=== PATIENT | female | born 2005 | race Caucasian/White ===

== ENCOUNTER 2023-10-28 13:03 | Emergency (ER) | payer OTHER, SELFPAY ==
[2023-10-28 13:13] VITALS: BP 126/87
--- NOTE | 2023-10-28 13:55 | ED.GENMED ---
History of Present Illness
<Marcella Bennett PA-C - Last Filed: 10/28/23 15:14>
General
Chief Complaint: Crisis Evaluation
Source: patient
Exam Limitations: none
Time Seen by Provider: 10/28/23 13:52
Nursing documentation reviewed up to this point in time: agreed with
Travel History
Have you had any contact with someone who has COVID-19?: No
Do you have any symptoms of coronavirus? Fever > 100 degrees, chills, cough, shortness of breath, sore throat, loss of taste or smell, muscle aches, or headache?: No
History of Present Illness
History of Present Illness:
This is a 18 y/o female with a PMH of anxiety, depression, PTSD, bipolar disorder presenting to the emergency department today with concerns for medical clearance. Patient is seeking inpatient psychiatric treatment for her bipolar disorder and got
excepted to the facility in [place]. Patient states that she is going there today. Patient denies any chest pain, shortness of breath, abdominal pain, headache, back pain urinary burning, fevers or chills chronic medical conditions. Patient
states that she does not take any other medications other than lamotrigine. Patient previously used meth, has used cocaine, marijuana, alcohol recently. Patient states that her right illicit drug use has been interacting with her lamotrigine and
so her treatment has not been optimized. Patient states that her facility is requesting a urine drug screen
Review of Systems
<Marcella Bennett PA-C - Last Filed: 10/28/23 15:14>
Review of Systems
All Other Systems: ROS reviewed and negative except as documented in HPI and ROS
Phy Exam
<Marcella Bennett PA-C - Last Filed: 10/28/23 15:14>
Physical Exam
Physical Exam:
General: Patient is well appearing and in no acute distress; non-toxic
Skin: Warm and dry, no rashes or lesions
Head: Normocephalic, atraumatic
Eyes: Sclera non-icteric. EOMs intact. PERRLA.
Cardiac: Regular rate and rhythm, no murmur
Peripheral Vascular: No lower extremity swelling or edema
Pulm: Normal respiratory effort, no wheezes, rales, rhonchi
Abdomen: No abdominal tenderness to palpation, no palpable masses
Neuro: CN II-XII intact, no focal neurologic deficits.
Psychiatric: Appropriate mood and affect.
Course
<Marcella Bennett PA-C - Last Filed: 10/28/23 15:14>
Orders/Labs/Results
Orders:
Orders
10/28/23 14:03
Test Result ONCE
10/28/23 14:06
Fentanyl, Urine Urgent
HCG, Urine Qualitative Screen Urgent
Date Specimen was Collected: 10/28/23
Time Specimen was Collected: 14:03
Urine Drug Abuse Screen Urgent
Date Specimen was Collected: 10/28/23
Time Specimen was Collected: 14:03
Abnormal Lab Results
10/28/23
14:06
Urine Cocaine Screen Positive H
(Negative)
U Marijuana (THC) Screen Positive H
(Negative)
Vital Signs
Initial and Last Documented VS:
Initial Vital Signs
Temp Pulse Resp BP Pulse Ox
98.2 F 83 20 126/87 99
10/28/23 13:13 10/28/23 13:13 10/28/23 13:13 10/28/23 13:13 10/28/23 13:13
Last Documented Vital Signs
Temp Pulse Resp BP Pulse Ox
98.2 F 83 20 126/87 99
10/28/23 13:13 10/28/23 13:13 10/28/23 13:13 10/28/23 13:13 10/28/23 13:13
<Koby Hinojosa MD - Last Filed: 10/28/23 14:37>
Orders/Labs/Results
Orders:
Orders
10/28/23 14:03
Test Result ONCE
10/28/23 14:06
Fentanyl, Urine Urgent
HCG, Urine Qualitative Screen Urgent
Date Specimen was Collected: 10/28/23
Time Specimen was Collected: 14:03
Urine Drug Abuse Screen Urgent
Date Specimen was Collected: 10/28/23
Time Specimen was Collected: 14:03
Abnormal Lab Results
10/28/23
14:06
Urine Cocaine Screen Positive H
(Negative)
U Marijuana (THC) Screen Positive H
(Negative)
Vital Signs
Initial and Last Documented VS:
Initial Vital Signs
Temp Pulse Resp BP Pulse Ox
98.2 F 83 20 126/87 99
10/28/23 13:13 10/28/23 13:13 10/28/23 13:13 10/28/23 13:13 10/28/23 13:13
Last Documented Vital Signs
Temp Pulse Resp BP Pulse Ox
98.2 F 83 20 126/87 99
10/28/23 13:13 10/28/23 13:13 10/28/23 13:13 10/28/23 13:13 10/28/23 13:13
Slimlt;Marcella Bennett PA-C - Last Filed: 10/28/23 15:14>
MDM/Problems Addressed
Differential Diagnosis Includes:
Patient presents today for medical clearance for inpatient psychiatric treatment. She has no chronic medical issues
MDM/Problems Addressed:
Medical Clearance:
18-year-old female with past medical history of depression, anxiety, bipolar disorder presenting emergency department today for medical clearance for inpatient psychiatric treatment. Patient has no medical concerns at this time, is completely
asymptomatic currently. Has no chronic medical conditions. Her facility is requesting a urine drug screen. Urine test negative. Her urine drug screen demonstrates positive for cocaine and THC however patient already admits to past use of
this. Patient is medically stable for psychiatric treatment.
Chronic conditions affecting care:
Anxiety, PTSD, bipolar disorder, depression
Chronic conditions affecting care: Psychiatric illness
Acute Exacerbation and/or Progression of Chronic Illness:
Anxiety, PTSD, bipolar disorder, depression
<Marcella Bennett PA-C - Last Filed: 10/28/23 15:14>
*Pulse Oximetry
Patient hypoxic: no
*Critical Care Note
Total Time (30-74mins, 75-104mins- exclusive of procedures): Not Applicable
Data Reviewed
Review of Other/Old Records Reveals: Records (reviewed ER physician documentation from 07/14/18) and Discharge Summary (no discharge summaries to review)
Source: patient and records
ED Attending Note
<Marcella Bennett PA-C - Last Filed: 10/28/23 15:14>
-
Portions of this chart may have been created with voice recognition software.� Occasional wrong word or��sound alike� substitutions may have occurred due to the inherent limitations of voice recognition software.
<Koby Hinojosa MD - Last Filed: 10/28/23 14:37>
ED Attending Note
Patient seen and examined by attending physician: Yes
I performed the substantive portion of visit, reviewed & personally made and approve the management plan that is documented in note by myself or ZUHAIR.: Yes
ED Attending Note:
Medical clearance for crisis. No medical complaints. Going in as a voluntary. Denies chest pain shortness of breath headache visual issues or other complaints
On exam patient is cooperative nontoxic in no distress. Normocephalic atraumatic. This sharp. Speech is normal. Lungs are clear and equal. Heart regular rate and rhythm. Warm and dry perfusing well.
Patient is medically cleared
Discharge Plan
Departure
Patient Disposition: Home (Routine Discharge)
Date of Disposition: 10/28/23
Time of Disposition: 15:11
Patient with high blood pressure during this ER visit?: Yes
Condition: Good
Discharge Problem:
Medical clearance for psychiatric admission
Instructions: Bipolar disorder, BLOOD PRESSURE, Drug and Alcohol Abuse Information
Prescriptions:
No Action
Control
1 tab PO DAILY
Referrals:
UNKNOWN,NO INTERVIEW [Family Provider] -
Activity Restrictions/Additional Instructions:
Patient is medically stable for inpatient psychiatric treatment.
Please return to the emergency department if you experience shortness of breath, chest pain, dizziness, withdrawal symptoms, seizures, or any other concerns.
Interventions
Interventions:
*Risk Screen - Suicide Last Done: 10/28/23 13:13
*General Assessment Last Done: 10/28/23 13:13
*Neglect/Abuse Screening Last Done: 10/28/23 13:13
Discharge Date and Time
Print Language: JORDANIAN
[2023-10-28 14:35] LABS: HCG, Urine Qualitative Screen Negative
[2023-10-28 14:48] LABS: Marijuana Positive (Negative)
[2023-10-28 14:49] LABS: Amphetamines Negative (Negative); Barbiturates Negative (Negative); Benzodiazepines Negative (Negative); Buprenorphine Negative (Negative); Cocaine Positive (Negative); Methadone Negative (Negative); Methamphetamines Negative (Negative); Opiates Negative (Negative); Phencyclidine Negative (Negative); Tricyclic Antidepressants Negative (Negative)
[2023-10-28 15:11] LABS: Fentanyl, Urine Negative (Negative)
== END 2023-10-28 15:18 | disposition home or self-care (01) ==
LOC: EMR 13:03
PROVIDERS: Physician Assistant; EMERGENCY PHYSICIAN Emergency Medicine
DX: Z13.30 Encounter for screening examination for mental health and behavioral disorders, unspecified (principal); F31.9 Bipolar disorder, unspecified; F41.9 Anxiety disorder, unspecified; F43.10 Post-traumatic stress disorder, unspecified
CPT/HCPCS: 99283; 80306; 80307; 81025

== ENCOUNTER 2024-04-01 00:14 | Emergency (ER) | payer OTHER, SELFPAY ==
[2024-04-01 00:16] VITALS: BP 96/69; BMI 19.8
[2024-04-01 00:46] LABS: % Basophils 0.5 % (0-2); % Eosinophils 1.6 % (0-6); % Immature Granulocytes 0.3 % (0-0.5); % Lymphocytes 39.9 % (20.5-51.1); % Monocytes 5.2 % (1.7-9.3); % Neutrophils 52.5 % (42.2-75.2); Absolute Basophils 0.1 10^3/uL (0-0.2); Absolute Eosinophils 0.2 10^3/uL (0-0.7); Absolute Lymphocytes 4.5 10^3/uL (1.2-3.4); Absolute Monocytes 0.6 10^3/uL (0.1-0.6); Absolute Neutrophils 5.9 10^3/uL (1.4-6.5); Hematocrit 36.7 % (37.0-47.0); Hemoglobin 11.7 g/dL (12.0-16.0); Mean Corp Hgb Conc. 31.9 g/dL (33.0-37.0); Mean Corpuscular Hgb 28.7 pg (27.0-31.0); Mean Corpuscular Volume 90.2 fL (81.0-99.0); Mean Platelet Volume 11.6 fL (7.4-10.4); Nucleated Red Blood Cells % 0 %; Platelet Count 192 10^3/uL (130-400); Red Blood Cell Count 4.07 10^6/uL (4.20-5.40); White Blood Cell Count 11.2 10^3/uL (4.8-10.8)
[2024-04-01 00:58] LABS: HCG, Serum Qualitative Screen Negative
[2024-04-01 01:09] LABS: ALT (SGPT) 25 U/L (0-35); AST (SGOT) 23 U/L (14-36); Albumin 4.3 g/dl (3.5-5.0); Alkaline Phosphatase 57 U/L (38-126); Blood Urea Nitrogen 7 mg/dl (7-17); Calcium 9.2 mg/dl (8.4-10.2); Carbon Dioxide 23 mmol/L (22-30); Chloride 102 mmol/L (98-107); Estimated Creatinine Clearance 98 ml/min; Glucose 89 mg/dl (70-99); Potassium 4.2 mmol/L (3.5-5.1); Salicylate < 1.0 mg/dl (2.0-20.0); Sodium 139 mmol/L (135-145); Total Bilirubin 0.8 mg/dl (0.2-1.3); eGFR > 60.00
[2024-04-01 01:15] LABS: Alcohol None Detected
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
[2024-04-01 02:47] LABS: Acetaminophen < 10 ug/ml (10-30)
== END 2024-04-01 03:44 ==
LOC: EMR 00:14
PROVIDERS: Emergency Medicine; EMERGENCY PHYSICIAN Emergency Medicine; FAMILY PHYSICIAN Nurse Practitioner Primary Care
DX: F31.9 Bipolar disorder, unspecified (principal)
CPT/HCPCS: 99282; 80053; 80143; 80179; 82077; 84703; 85025

== ENCOUNTER 2024-04-01 13:27 | Emergency (ER) | payer OTHER, SELFPAY ==
[2024-04-01 13:31] VITALS: BP 108/73
--- NOTE | 2024-04-01 14:21 | EDRN ---
Vonnie DONOHUE in room w/ pt and caregiver.
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
--- NOTE | 2024-04-01 14:29 | EDRN ---
paste up worker in room w/ pt at this time.
[2024-04-01 14:33] VITALS: BP 97/65; BMI 20.3
--- NOTE | 2024-04-01 15:08 | EDRN ---
Pt at this time is a safety hold and community outreach worker stated to this RN that she will probably need inpatient psychiatric care.
--- NOTE | 2024-04-01 16:08 | EDRN ---
ED [facility] was doing one to one after reconditioning associate left at 15:20 until pt was moved to Crisis room 1 arfter it was cleaned at 15:40. Pt was asked to change into paper scrubs at this time and refused to change.
[2024-04-01] MEDS: NICODERM TRANSDERMAL 21 MG TRANSDERM (17:41)
[2024-04-01 19:09] VITALS: BP 100/65
== END 2024-04-01 19:34 | disposition home or self-care (01) ==
LOC: EMR 13:27
PROVIDERS: EMERGENCY PHYSICIAN Emergency Medicine; FAMILY PHYSICIAN Nurse Practitioner Primary Care
DX: F43.20 Adjustment disorder, unspecified (principal); F31.9 Bipolar disorder, unspecified; F12.90 Cannabis use, unspecified, uncomplicated; F17.200 Nicotine dependence, unspecified, uncomplicated; Z65.3 Problems related to other legal circumstances
CPT/HCPCS: 99283

== ENCOUNTER 2025-01-11 18:04 | Emergency (ER) | payer OTHER, SELFPAY ==
[2025-01-11 18:06] VITALS: BP 118/77
[2025-01-11 20:21] VITALS: BMI 22.2
[2025-01-11 20:26] VITALS: BP 127/79
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
== END 2025-01-11 22:37 ==
LOC: EMR 18:04
PROVIDERS: EMERGENCY PHYSICIAN Student in an Organized Health Care Education/Training Program
DX: Z02.89 Encounter for other administrative examinations (principal); F17.200 Nicotine dependence, unspecified, uncomplicated; F19.10 Other psychoactive substance abuse, uncomplicated; Z79.3 Long term (current) use of hormonal contraceptives; Z98.891 History of uterine scar from previous surgery
CPT/HCPCS: 99282

== ENCOUNTER 2025-01-12 13:20 | Emergency (ER) | payer OTHER, SELFPAY ==
[2025-01-12 13:23] VITALS: BP 108/67; BMI 22.7
[2025-01-12 13:25] VITALS: BP 108/64
[2025-01-12 13:42] LABS: Hematocrit 33.8 % (37.0-47.0); Hemoglobin 10.8 g/dL (12.0-16.0); Mean Corp Hgb Conc. 32.0 g/dL (33.0-37.0); Mean Corpuscular Volume 89.2 fL (81.0-99.0); Nucleated Red Blood Cells % 0 %; Platelet Count 190 10^3/uL (130-400); Red Cell Dist. Width 13.4 % (11.5-14.5)
[2025-01-12 13:57] LABS: ALT (SGPT) 15 U/L (0-35); AST (SGOT) 23 U/L (14-36); Albumin 4.2 g/dl (3.5-5.0); Alkaline Phosphatase 69 U/L (38-126); Blood Urea Nitrogen 15 mg/dl (7-17); Calcium 9.7 mg/dl (8.4-10.2); Carbon Dioxide 31 mmol/L (22-30); Chloride 103 mmol/L (98-107); Estimated Creatinine Clearance 117 ml/min; Glucose 100 mg/dl (70-99); Potassium 4.0 mmol/L (3.5-5.1); Sodium 138 mmol/L (135-145); Total Protein 6.8 g/dl (6.3-8.2); eGFR > 60.00
[2025-01-12 14:00] VITALS: BP 97/57
[2025-01-12 14:06] LABS: Troponin I < 0.012 ng/ml
--- NOTE | 2025-01-12 14:20 | ED.GENMED ---
History of Present Illness
General
Chief Complaint: Chest Pain
Source: patient
Exam Limitations: none
Time Seen by Provider: 01/12/25 14:01
Nursing documentation reviewed up to this point in time: agreed with
History of Present Illness
History of Present Illness:
Patient is a 19-year-old female with history of bipolar disorder, asthma who presents to the emergency department for evaluation of chest pain. Patient was in a holding cell following court appearance about 1 hour ago when she reports having an
unwitnessed syncopal event. She describes that she started feeling unwell including left-sided chest pain and shortness of breath earlier this morning prior to her court appearance. When she returned from the court appearance she states that she
'passed out and woke up on the ground '. She is unsure if she hit her head. At this point�she alerted the guard that she was not feeling well and they called 911 for transportation to the emergency department. This reported syncopal event was
unwitnessed and staff from [facility] house state there is no video recording in the holding cells.
She describes a sharp pain in her left chest radiating down into her left ribs. She denies any pleuritic component however does feel that symptoms were worse when walking around. She denies any recent fever or viral symptoms. No productive cough.
No lower leg swelling or pain.
No recent surgery or travel. No personal or family history of blood clots/clotting disorders. She does have a Nexplanon implant.
Past History
Past History
ED Past Medical History: Psychiatric
ED Past Surgical History:
Social History
Tobacco: Smoker
Alcohol: None
Drug: Marijuana and Cocaine
Personal: Single
Living: with family
Review of Systems
Review of Systems
Allergies reviewed?: Yes
All Other Systems: ROS reviewed and negative except as documented in HPI and ROS
Phy Exam
Physical Exam
Physical Exam:
Vitals: Patient's vital signs are stable. Afebrile
General: Patient is resting comfortably on initial evaluation.
Skin: Warm and dry, no rashes or lesions
Head: Normocephalic, atraumatic. No evidence of trauma
Eyes: Sclera nonicteric. Grossly intact.
Throat: Protecting airway
Neck: Normal ROM, no cervical spine tenderness, no meningismus
Cardiac: Regular rate and rhythm, no murmurs. Reproducible tenderness in left chest wall
Pulm: Normal respiratory effort, no wheezes, rales, rhonchi heard on exam
Abdomen: Abdomen soft and nontender.
Extremities: Mild edema and tenderness to right ankle. No bony tenderness of right medial/lateral malleolus or base of right fifth metatarsal. 2+ palpable DP pulse bilateral lower extremities. Negative Homans' sign bilaterally without calf
tenderness.
Neuro: AAOx3. Grossly intact.
Psychiatric: Normal affect.
Scores
Heart Score for Chest Pain Patients
STEMI patient?: Not applicable
Course
Orders/Labs/Results
Orders:
Orders
01/12/25 13:23
Electrocardiogram (*1) Urgent
Reason for Study: Chest Pain
EKG- Treatment ONCE
01/12/25 13:29
Complete Blood Count/With Diff Urgent
Comprehensive Metabolic Panel Urgent
HCG, Serum Qualitative Screen Urgent
Comment: ADD ON
Troponin I Urgent
01/12/25 14:17
EKG- Treatment ONCE
0.9% Sodium Chloride 1000 ml [Nss] 1,000 ml IV BOLUS
Ketorolac [Toradol] 15 mg IV NOW STA
Foot, Right 3 View [CR Foot - Right Min 3 Views] Urgent
Comment:
Reason For Exam: pain/swelling
01/12/25 14:18
Add On- LAB Urgent
Tests Added?: serum hcg
CT Head W/o Iv Contrast Urgent
Comment:
Reason For Exam: unwitnessed fall
01/12/25 14:30
D-Dimer Urgent
01/12/25 16:02
CR Chest - 2 Views Urgent
Comment:
Reason For Exam: left sided chest pain
01/12/25 16:30
Electrocardiogram (*1) Urgent
Reason for Study: Chest Pain
01/12/25 16:41
Troponin I Urgent
Abnormal Lab Results
01/12/25
13:29
RBC 3.79 L 10^6/uL
(4.20-5.40)
Hgb 10.8 L g/dL
(12.0-16.0)
Hct 33.8 L %
(37.0-47.0)
MCHC 32.0 L g/dL
(33.0-37.0)
MPV 11.4 H fL
(7.4-10.4)
Carbon Dioxide 31 H mmol/L
(22-30)
Glucose 100 H mg/dl
(70-99)
01/12/25 13:29
01/12/25 13:29
Vital Signs
Initial and Last Documented VS:
Initial Vital Signs
BP
108/67
01/12/25 13:23
Last Documented Vital Signs
Temp Pulse Resp BP Pulse Ox
98.7 F 83 15 96/55 95
01/12/25 13:25 01/12/25 17:30 01/12/25 17:30 01/12/25 17:00 01/12/25 17:30
MDM/Problems Addressed
Differential Diagnosis Includes:
Not limited to: Chest wall strain, costochondritis, pleurisy, vasovagal syncope, pericarditis, acute coronary syndrome, pulmonary embolism, anxiety, etc.
MDM/Problems Addressed:
19 year-old female presenting from assisted with atypical chest pain as well as unwitnessed syncopal event. She reports left sided chest pain as well as mild shortness of breath intermittently today. She then experienced and unwitnessed syncopal event
while in her holding cell with unknown head strike. No fever, cough, or pleuritic component to symptoms. Patient does have a nexplanon implant - no additional PE risk factors. Vitals and physical exam as above.
Differential broad. Possible muscle strain/costochondritis, anxiety. Lower suspicion for acute coronary syndrome or pulmonary embolism however, will screen with serial troponins, and d-dimer.
ED plan: Labs, serial troponins, d-dimer. Will check chest x-ray. Will check CT head given unwitnessed syncope. Will closely monitor and reassess after above.
Update: labs reviewed. No clinically significant abnormalities on basic labs. Troponins undetectable x 2 with negative d-dimer. Chest x-ray without acute fines. Head CT and right foot x-ray without evidence of traumatic injuries.
Patient has been monitored in the emergency department and remains hemodynamically stable. Her pain did improve somewhat after Toradol.
At this point � very low suspicion for acute cardiac/pulmonary emergency. Possible musculoskeletal in nature. However � given work up negative and improvement in symptoms, feel stable for discharge back to assisted. Advised Motrin, strict return
precautions. Patient comfortable with plan.
Chronic conditions affecting care:
N/A
Acute Exacerbation and/or Progression of Chronic Illness:
N/A
*Radiology
Radiology exam reviewed: preliminary read by ED provider (CXR reviewed by me - no acute abnormalities) and radiology read reviewed
*Pulse Oximetry
SaO2: 98
Oxygen Mode of Delivery: Room air
Patient hypoxic: no
*EKG
Interpreted by ED Provider?: Yes
EKG Intrepretation Date: 01/12/25
Interpretation: normal
Comparison EKG: no changes
Heart Rate: 90
Rate: normal
Rhythm: sinus and sinus arrhythmia
Vandemere: normal axis
Interval: normal QT interval
QRS Pattern: normal QRS
Ischemia: non-specific ST changes
*Sp[place] Fisherman Interpretation
Rate: normal
Interpretation: normal
Heart Rate: 82
Rhythm: sinus
*Critical Care Note
Total Time (30-74mins, 75-104mins- exclusive of procedures): Not Applicable
ED Attending Note
-
Portions of this chart may have been created with voice recognition software.� Occasional wrong word or��sound alike� substitutions may have occurred due to the inherent limitations of voice recognition software.
Discharge Plan
Departure
Patient Disposition: Home (Routine Discharge)
Date of Disposition: 01/12/25
Time of Disposition: 17:51
Patient with high blood pressure during this ER visit?: No
Condition: Good
Discharge Problem:
Chest pain
Instructions: Chest pain (DC)
Prescriptions:
No Action
Control
1 tab PO DAILY
Referrals:
[facility] [Family Provider, General]
Activity Restrictions/Additional Instructions:
RETURN TO THE EMERGENCY DEPARTMENT WITH ANY FEVERS, CHEST PAIN, SHORTNESS OF BREATH/DIFFICULTY BREATHING, LIGHTHEADEDNESS OR ADDITIONAL EPISODES OF FAINTING, WORSENING IN CURRENT SYMPTOMS, OR ANY OTHER CONCERNS
- As discussed�your lab work including cardiac enzymes showed no acute abnormalities. Your hemoglobin was 10.8 which signifies mild anemia. Your chest x-ray, foot x-ray, and head CT showed no acute abnormalities.
- Continue to take your medications as prescribed.
- You can take Motrin as needed for any discomfort.
- Follow-up with your primary care provider for further evaluation/management as we ensure your symptoms are improving
Monitor your symptoms closely and return to the emergency department with any acute worsening/new symptoms or any other concerns
PATIENT IS MEDICALLY CLEARED FOR INCARCERATION
Interventions
Interventions:
*Risk Screen - Suicide Last Done: 01/12/25 13:31
*General Assessment Last Done: 01/12/25 13:24
*Neglect/Abuse Screening Last Done: 01/12/25 13:30
*ED- Fall Risk Assessment Last Done: 01/12/25 13:30
*ED COVID-19 Vaccine History Last Done: 01/12/25 13:30
*Nursing Disposition Last Done: 01/12/25 18:05
ED- Cardiac Assessment Last Done: 01/12/25 13:31
Discharge Date and Time
Discharge Date/Time: 01/12/25 18:07
Print Language: PERSIAN
[2025-01-12] MEDS: TORADOL 15 MG IV (14:24)
[2025-01-12] MEDS: NSS 1000 IV (14:25)
[2025-01-12 14:55] LABS: D-Dimer 0.38 ug/mlFEU (0.00-0.50)
[2025-01-12 15:00] VITALS: BP 93/52
[2025-01-12 15:31] LABS: HCG, Serum Qualitative Screen Negative
[2025-01-12 16:00] VITALS: BP 93/54
[2025-01-12 17:00] VITALS: BP 96/55
[2025-01-12 17:20] LABS: Troponin I < 0.012 ng/ml
== END 2025-01-12 18:07 ==
LOC: EMR 13:20
PROVIDERS: Emergency Medicine; Physician Assistant; EMERGENCY PHYSICIAN Emergency Medicine
DX: R07.9 Chest pain, unspecified (principal); J45.909 Unspecified asthma, uncomplicated; F31.9 Bipolar disorder, unspecified; F17.200 Nicotine dependence, unspecified, uncomplicated
CPT/HCPCS: 99284; 96374; 96361; 70450; 71046; 73630; 80053; 84484; 84703; 85025; 85379; 93005